=== PATIENT | female | born 1955 | race Caucasian/White ===

== ENCOUNTER 2022-05-04 12:01 | Emergency (ER) | payer MEDICAID ==
[~2022-05-04] VITALS: Ht 157.5 cm; Wt 50.0 kg
[2022-05-04] MEDS ORDERED: MORPHINE SULFATE 4 MG/ML CPJ (NOT FOR IM USE) IV STA (12:54)
[2022-05-04] MEDS ORDERED: KETOROLAC 30MG/ML VIAL IV STA (12:54)
[2022-05-04] MEDS ORDERED: ACETAMINOPHEN 325MG TABLET PO STA (12:54)
[2022-05-04] MEDS ORDERED: SODIUM CHLORIDE 0.9% 1,000 ML IV ONE (13:00)
[2022-05-04 13:21] LABS: BASOPHILS % 0.4 % (0.0-2.0); EOSINOPHILS % 1.1 % (0.0-5.0); HEMATOCRIT. 22.6 % (36.0-48.0); HEMOGLOBIN. 7.3 g/dL (12.0-16.0); MEAN CORPUSCULAR HEMOGLOBIN 28.4 pg (28.0-32.0); MEAN CORPUSCULAR VOLUME 87.6 fL (81.0-99.0); NEUTROPHILS % 74.5 % (40.0-76.0); PLATELET 125 x1000/uL (130-400); RED BLOOD CELL COUNT 2.58 mill/uL (4.2-5.4)
[2022-05-04 13:28] LABS: CHLORIDE 101 mEq/L (98-107)
[2022-05-04 13:52] LABS: INR 1.3; PROTHROMBIN TIME 13.7 sec (9.6-11.0)
[2022-05-04] MEDS ORDERED: POTASSIUM CHLORIDE 20MEQ TABLET SR PO NR (14:15)
[2022-05-04 14:17] LABS: CLARITY URINE CLEAR (CLEAR); COLOR URINE YELLOW (YELLOW); KETONES URINE NEGATIVE (NEGATIVE); LEUKOCYTE ESTERASE URINE NEGATIVE (NEGATIVE); NITRITE URINE NEGATIVE (NEGATIVE); OCCULT BLOOD URINE NEGATIVE (NEGATIVE); PROTEIN URINE NEGATIVE (NEGATIVE); SPECIFIC GRAVITY URINE 1.008 (1.005-1.030); UROBILINOGEN URINE 0.2 E.U./dL (0.2-1.0)
[2022-05-04] MEDS ORDERED: LEVOFLOXACIN 250MG TABLET PO NR (14:45)
[2022-05-04] MEDS ORDERED: LEVO750T68 MT (15:02)
[2022-05-04 15:21] VITALS: BP 118/65
== END 2022-05-04 15:21 | disposition home or self-care (01) ==
LOC: ER 13:40 → EDBD 13:40 → ER 15:21
DX: K52.9 Noninfective gastroenteritis and colitis, unspecified (principal); K74.60 Unspecified cirrhosis of liver; I10 Essential (primary) hypertension
CPT/HCPCS: 36415; 74176; 80053; 81003; 83690; 85025; 85610; 96361; 96374; 96375; 99284; J1885; J2270; J7030